=== PATIENT | male | born 1995 | race Caucasian/White ===

== ENCOUNTER 2017-11-08 13:15 | Emergency (ER) | payer OTHER, SELFPAY ==
[2017-11-08 13:19] VITALS: BP 132/72; PULSE 60; RESP 14; TEMP 36.6; O2SAT 100; BMI 22.4
--- NOTE | 2017-11-08 14:22 | ED.BURNSMOKE ---
HPI - Burn/Smoke Inhalation General Chief complaint: Burn/Smoke Inhalation Stated complaint: left hand burn Time Seen by Provider: 11/08/17 13:30 Source: patient Mode of arrival: ambulatory Limitations: no limitations History of Present Illness HPI Narrative: Patient presents with to the ED with his and children and the complaint of burn to L hand after he grabbed a hot exhaust pipe of a lawnmower while at work. His tetanus is current. He immediately put his hand on ice. He has osborne only on the palmar surface of L hand Complaint: burn Onset (ago): hour(s) Smoke Inhalation: none Place: unknown (WORK) Location - Extremities: Left: hand Severity: mild Associated symptoms: denies other symptoms Related Data Previous Rx's Medication Instructions Recorded hydrocodone-acetaminophen 1 tab PO Q4-6H PRN #14 tab 11/08/17 Allergies Allergy/AdvReac Type Severity Reaction Status Date / Time cephalexin Allergy Intermediate Rash Verified 11/08/17 13:22 Review of Systems Review of Systems All systems reviewed & are unremarkable except as noted in HPI and below Constitutional Denies chills, Denies fever(s), Denies lethargy and Denies weakness Eyes Denies change in vision, Denies eye discharge, Denies irritation and Denies loss of vision ENT Ears, Nose, Mouth, and Throat: Denies change in voice, Denies neck pain and Denies sore throat Cardiovascular Denies chest pain, Denies irregular heart rhythm, Denies lightheadedness, Denies palpitations, Denies dyspnea, Denies dyspnea on exertion and Denies orthopnea Respiratory Denies cough, Denies dyspnea, Denies dyspnea on exertion and Denies wheezing Gastrointestinal Gastrointestinal: Denies abdominal pain, Denies change in bowel habits, Denies diarrhea, Denies nausea and Denies vomiting Genitourinary Denies hematuria, Denies flank pain, Denies urinary incontinence and Denies urinary urgency Musculoskeletal Denies neck pain Integumentary/Breasts Denies pruritus, Denies erythema, Denies rash, Reports skin pain, Reports skin swelling and Denies wounds Neurologic Denies confusion, Denies loss of vision and Denies weakness Psychiatric Denies anxiety, Denies confusion, Denies depression, Denies homicidal ideation and Denies suicidal ideation Endocrine Denies palpitations Hematologic/Lymphatic Denies easy bruising Allergic/Immunologic Denies wheezing [facility] Social History Smoking Status: Current every day smoker Exam Narrative Exam Narrative: 21-year-old male in mild distress, complaining of left hand pain Initial Vital Signs Initial Vital Signs: Vital Signs Temperature 97.8 F 11/08/17 13:19 Pulse Rate 60 11/08/17 13:19 Respiratory Rate 14 11/08/17 13:19 Blood Pressure 132/72 H 11/08/17 13:19 Pulse Oximetry 100 11/08/17 13:19 Const General: cooperative, well developed and in distress Nutritional Appearance: well nourished Orientation: alert, awake, oriented x3 and not confused HENMT Head: normocephalic and atraumatic Ears: external ears normal and TM's normal bilaterally Nose: external nose normal and No nasal discharge Face and sinus: sinuses nontender, face symmetric, no sinus tenderness and No dry mucous membranes Mouth: oral mucosae normal and moist mucous membranes Teeth and gingiva: dentition normal Throat: tonsils normal and uvula midline Eyes General: appearance normal, both eyes and all related structures Eyelids: eyelids normal Conjunctivae: conjunctivae normal Sclera: sclerae normal Pupils: PERRL EOM: EOM intact bilaterally Resp Effort & Inspection: normal respiratory effort, able to speak in complete sentences, no respiratory distress and no use of accessory muscles Auscultation: clear to auscultation bilaterally, no rales, no rhonchi and no wheezes GI Inspection: non-distended Palpation: soft, no hepatosplenomegaly, No guarding, No pulsatile mass and No tender Auscultation: normal bowel sounds Skin Other: There are no blisters that are currently fluid-filled. Furthermore there is no skin appears amenable to debridement. Wounds are in the location noted on the picture below and certainly no involvement of wrist, nor circumferential involvement Hand Left Front: 1. 2. 3. Course Orders Ordered: Discontinued Medications Hydrocodone Bitart/Acetaminophen ([place] 5/325) 2 tab PO NOW ONE Stop: 11/08/17 14:19 Last Admin: 11/08/17 14:28 Dose: 2 tab Consultations Consultation #1: Called to the [facility]. Recommendations are to wash their you to video, osborne 306, performing the stretches at least 1 time per day. They recommend cleaning with soap and water and then reapplying bacitracin once daily. They are comfortable with local follow-up at our wound care clinic and suggest that wound care contact them for further questioning or management Vital Signs - 8 hr 11/08/17 13:19 11/08/17 14:33 Temperature 97.8 F Pulse Rate 60 77 Respiratory Rate 14 18 Blood Pressure 132/72 H Blood Pressure [Right Arm] 126/67 H Pulse Oximetry 100 97 Discharge Plan Departure Patient Disposition: Home Clinical Impression: Superficial partial thickness burn of hand Discharge Date/Time: 11/08/17 15:34 Interventions: ED Discharge Assessment Last Done: 11/08/17 15:34 Instructions: Osborne Activity Restrictions/Additional Instructions: *You have been diagnosed with [ superficial partial-thickness osborne of left hand ] *What to do: *Take medications as directed *Follow up with [facility] wound Care on Monday at 11:15 a.m.. Their contact information is listed below. *Return to ER if you should have any new, worsening or concerning symptoms, such as [ increasing pain, numbness or tingling of her fingers, increases redness or swelling The [facility] and [facility] put together very useful YouTube videos for osborne. Please search for the following video (Osborne 306) to perform stretches that will help decrease scarring and the chance of decreased range of motion. Perform these stretches at least 1 time per day. Additionally he will need to wash your left hand with soap and water at least once daily and then reapply bacitracin and a dressing, at least until he follow up with wound care on Monday. Finally I have included the contact info for the [facility] burn clinic [phone] Prescriptions: New hydrocodone-acetaminophen 5-325 mg tablet 1 tab PO Q4-6H PRN (Reason: pain) Qty: 14 RF: 0 Referrals: Camden Pearson MD [Physician] - Dorie Hernandez [Primary Care Provider] -
[2017-11-08] MEDS: HYDROCODONE/ACET 5/325 TABLET 2 TAB PO (14:28)
--- NOTE | 2017-11-08 14:29 | ED_ITS ---
HPI - Burn/Smoke Inhalation General Chief complaint: Burn/Smoke Inhalation Stated complaint: left hand burn Time Seen by Provider: 11/08/17 13:30 Source: patient Mode of arrival: ambulatory Limitations: no limitations History of Present Illness HPI Narrative: Patient presents with to the ED with his and children and the complaint of burn to L hand after he grabbed a hot exhaust pipe of a lawnmower while at work. His tetanus is current. He immediately put his hand on ice. He has osborne only on the palmar surface of L hand Complaint: burn Onset (ago): hour(s) Smoke Inhalation: none Place: unknown (WORK) Location - Extremities: Left: hand Severity: mild Associated symptoms: denies other symptoms Related Data Previous Rx's Medication Instructions Recorded hydrocodone-acetaminophen 1 tab PO Q4-6H PRN #14 tab 11/08/17 Allergies Allergy/AdvReac Type Severity Reaction Status Date / Time cephalexin Allergy Intermediate Rash Verified 11/08/17 13:22 Review of Systems Review of Systems All systems reviewed & are unremarkable except as noted in HPI and below Constitutional Denies chills, Denies fever(s), Denies lethargy and Denies weakness Eyes Denies change in vision, Denies eye discharge, Denies irritation and Denies loss of vision ENT Ears, Nose, Mouth, and Throat: Denies change in voice, Denies neck pain and Denies sore throat Cardiovascular Denies chest pain, Denies irregular heart rhythm, Denies lightheadedness, Denies palpitations, Denies dyspnea, Denies dyspnea on exertion and Denies orthopnea Respiratory Denies cough, Denies dyspnea, Denies dyspnea on exertion and Denies wheezing Gastrointestinal Gastrointestinal: Denies abdominal pain, Denies change in bowel habits, Denies diarrhea, Denies nausea and Denies vomiting Genitourinary Denies hematuria, Denies flank pain, Denies urinary incontinence and Denies urinary urgency Musculoskeletal Denies neck pain Integumentary/Breasts Denies pruritus, Denies erythema, Denies rash, Reports skin pain, Reports skin swelling and Denies wounds Neurologic Denies confusion, Denies loss of vision and Denies weakness Psychiatric Denies anxiety, Denies confusion, Denies depression, Denies homicidal ideation and Denies suicidal ideation Endocrine Denies palpitations Hematologic/Lymphatic Denies easy bruising Allergic/Immunologic Denies wheezing [facility] Social History Smoking Status: Current every day smoker Exam Narrative Exam Narrative: 21-year-old male in mild distress, complaining of left hand pain Initial Vital Signs Initial Vital Signs: Vital Signs Temperature 97.8 F 11/08/17 13:19 Pulse Rate 60 11/08/17 13:19 Respiratory Rate 14 11/08/17 13:19 Blood Pressure 132/72 H 11/08/17 13:19 Pulse Oximetry 100 11/08/17 13:19 Const General: cooperative, well developed and in distress Nutritional Appearance: well nourished Orientation: alert, awake, oriented x3 and not confused HENMT Head: normocephalic and atraumatic Ears: external ears normal and TM's normal bilaterally Nose: external nose normal and No nasal discharge Face and sinus: sinuses nontender, face symmetric, no sinus tenderness and No dry mucous membranes Mouth: oral mucosae normal and moist mucous membranes Teeth and gingiva: dentition normal Throat: tonsils normal and uvula midline Eyes General: appearance normal, both eyes and all related structures Eyelids: eyelids normal Conjunctivae: conjunctivae normal Sclera: sclerae normal Pupils: PERRL EOM: EOM intact bilaterally Resp Effort & Inspection: normal respiratory effort, able to speak in complete sentences, no respiratory distress and no use of accessory muscles Auscultation: clear to auscultation bilaterally, no rales, no rhonchi and no wheezes GI Inspection: non-distended Palpation: soft, no hepatosplenomegaly, No guarding, No pulsatile mass and No tender Auscultation: normal bowel sounds Skin Other: There are no blisters that are currently fluid-filled. Furthermore there is no skin appears amenable to debridement. Wounds are in the location noted on the picture below and certainly no involvement of wrist, nor circumferential involvement Hand Left Front: 2 1. 2. 3. Course Orders Ordered: Discontinued Medications Hydrocodone Bitart/Acetaminophen ([place] 5/325) 2 tab PO NOW ONE Stop: 11/08/17 14:19 Last Admin: 11/08/17 14:28 Dose: 2 tab Consultations Consultation #1: Called to the [facility]. Recommendations are to wash their you to video, osborne 306, performing the stretches at least 1 time per day. They recommend cleaning with soap and water and then reapplying bacitracin once daily. They are comfortable with local follow-up at our wound care clinic and suggest that wound care contact them for further questioning or management Vital Signs - 8 hr 11/08/17 13:19 11/08/17 14:33 Temperature 97.8 F Pulse Rate 60 77 Respiratory Rate 14 18 Blood Pressure 132/72 H Blood Pressure [Right Arm] 126/67 H Pulse Oximetry 100 97 Discharge Plan Departure Patient Disposition: Home Clinical Impression: Superficial partial thickness burn of hand Discharge Date/Time: 11/08/17 15:34 Interventions: ED Discharge Assessment Last Done: 11/08/17 15:34 Instructions: Osborne Activity Restrictions/Additional Instructions: *You have been diagnosed with [ superficial partial-thickness osborne of left hand ] *What to do: *Take medications as directed *Follow up with [facility] wound Care on Monday at 11:15 a.m.. Their contact information is listed below. *Return to ER if you should have any new, worsening or concerning symptoms , such as [ increasing pain, numbness or tingling of her fingers, increases redness or swelling The [facility] and [facility] put together very useful YouTube videos for osborne. Please search for the following video (Osborne 306) to perform stretches that will help decrease scarring and the chance of decreased range of motion. Perform these stretches at least 1 time per day. Additionally he will need to wash your left hand with soap and water at least once daily and then reapply bacitracin and a dressing, at least until he follow up with wound care on Monday. Finally I have included the contact info for the [facility] burn clinic [phone] Prescriptions: New hydrocodone-acetaminophen 5-325 mg tablet 1 tab PO Q4-6H PRN (Reason: pain) Qty: 14 RF: 0 Referrals: Camden Pearson MD [Physician] - Dorie Hernandez [Primary Care Provider] -
[2017-11-08 14:33] VITALS: BP 126/67; PULSE 77; RESP 18; O2SAT 97
--- NOTE | 2017-11-08 15:34 | PC.NURSE ---
1535 hand cleaned, neosporin and bulky dressing applied
== END 2017-11-08 15:34 | disposition home or self-care (01) ==
PROVIDERS: Emergency Provider Emergency Medicine; Family Provider Nurse Practitioner Family; PCP Nurse Practitioner Family
DX: T23.052A Burn of unspecified degree of left palm, initial encounter (principal); X17.XXXA Contact with hot engines, machinery and tools, initial encounter; Y99.0 Civilian activity done for income or pay
CPT/HCPCS: 99282; 99283

== ENCOUNTER → 2017-11-10 08:39 | Outpatient (CLI) | payer OTHER, SELFPAY ==
--- NOTE | 2017-11-10 | OV.WND_ITS ---
Progress Note Details Patient Name: Melvin Vargas Patient Number: [id number] PatientPatientDate: 11/10/2017 Clinician: Dona Wheatley Clinician Cosigner: Vandana Torres Physician / Termite Renewal Inspector: Camden Pearson SUBJECTIVE Chief Complaint This information was obtained from the patient Burn to left hand Allergies Cefzil (Severity: Severe, Reaction: diarrhea, swelling, rash) HPI This information was obtained from the patient 11/10/17. Seen by Dr. Pearson. 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 He was starting a lawnmower and touched the exhaust by accident. He reports minimal pain and now drainage and continues to work with diminished duties. 03/25/15 The patient reports no increase in wound pain or drainage. 03/18/14 The patient reports no increase in wound pain or drainage. Also he reports no systemic symptoms including fever or chills. 03/12/14 The patient reports no increase in wound pain or drainage. Also he reports no systemic symptoms including fever or chills. 03/07/14 The patient is new to our clinic and is following up after experiencing a traumatic laceration to his left hand in a fish grinding machine while at work on . He was seen in our ER where the wound was cleaned, sutured, and he was started on oral doxycycline which he started taking last evening. He's had two doses so far. He states his pain is not well managed by vicodin 2 tabs q4h but does not report fever or chills. According to Dr. Contreras in the ER there was exposed tendon however it did not appear to be damaged and was functional. Family History This information was obtained from the patient Cancer - Maternal Grandparents, Hypertension - Paternal Grandparents, Lung Disease - Maternal Grandparents, Mental Illness - Mother, Father Social History This information was obtained from the patient Current every day smoker - 1/2 pack qd, Alcohol Use, Caffeine Use - 3 pots of coffee, 2-3 sodas, 2 energy drinks, Children - 3 , Lives in - Private home, Tobacco Use ( deprecated) - cigarrettes/ vape Past Medical History This information was obtained from the patient Patient has a medical history of: Hand laceration - 03/05/2014 (left) Surgical History This information was obtained from the patient Patient has a surgical history of: Left arm fracture (2007) Complaints and Symptoms This information was obtained from the patient Patient complains of: General Notes: I have reviewed and concur with the Review of Systems and Past Family Social History documents completed by the clinician, I have reviewed and concur with the Wound Assessment document completed by the clinician Prior Wound History: Bleeding, Erythema, Pain Patient denies complaints or symptoms related to: Constitutional Symptoms (General Health): Chills, Fever Gastrointestinal (GI): Nausea / Vomiting / Diarrhea (N/V/D) Hematologic/Lymphatic: Bleeding / Clotting Disorders, Bleeding Tendency Integumentary (Hair/Skin/Nails): Open Sore Neurological: Loss of Protective Sensation Prior Wound History: Drainage, Malodor Respiratory: Cough, Oxygen Use, Shortness of Breath General Notes: up to date Medications hydrocodone bitartrate ER 10 mg capsule, oral only, extended rel 12 hr oral capsule, oral only, ER 12hr oral every 4-6 hours as needed OBJECTIVE Constitutional Vital signs reviewed and noted. Well developed. Alert. Clean appearing.. Height/ Length: 74 in (187.96 cm), Weight: 164 lbs (74.55 kgs), BMI: 21.1, Temperature: 97.8 ?F ( 36.56 ?C), Pulse: 83 bpm, Respiratory Rate: 18 breaths/min, Blood Pressure: 112/61 mmHg, Pulse Oximetry: 94 %. Ears, Nose, Mouth, and Throat: No clinically significant hearing loss on informal examination. Respiratory: No respiratory distress. Even respirations and without use of accessory muscles.. Gastrointestinal (GI): Non-obese. Nondistended.. Integumentary (Hair, Skin) No periwound erythema, warmth, or significant drainage. No periwound rashes appreciated or noted otherwise.. Refer to appropriate clinician wound documentation for this visit; left hand palmar osborne covered with intact blisters, none crossing joints and no signs of infection. Wound #2 Left Hand is an acute Partial Thickness Burn, thermal (1st degree) and has received a status of Not Healed. Initial wound encounter measurements are 0cm length x 0cm width with no measurable depth, with an area of 0 sq cm . No tunneling has been noted. No sinus tract has been noted. No undermining has been noted. There was no drainage noted. The patient reports a wound pain of level 0/10. The wound margin is attached. Wound bed has No epithelialization, No eschar, No slough, No granulation. The periwound skin texture is normal. The periwound skin moisture is normal. The periwound skin color is normal. The temperature of the periwound skin is WNL. Periwound skin does not exhibit signs or symptoms of infection. Local Pulse is Palpable. Neurological: Cranial nerves grossly intact with symmetric function normal by informal observation.. ASSESSMENT Active Problems ICD-10 (Encounter Diagnosis) T23.002A - Burn of unspecified degree of left hand, unspecified site, initial encounter PLAN Wound Orders: Wound #2 Left Hand Cleanser Cleanse Wound: - Normal saline in clinic. May use distilled water at home if blister opens. May Shower. - If blister opens please avoid getting tap water in wound or on dressing. Dressings Primary dressing: - Foam and gauze. Change Dressing: - Every other day Additional Orders: Follow-Up Appointments Return Appointment: - - One week Other information: If you develop fever, chills, increased pain, drainage, redness or swelling please call our office. If after hours, respond to the ER. Should you experience any significant changes in your wound(s) or have any questions regarding your home care instructions please contact the wound center @ [phone]. If after hours, contact your primary care physician or go to the hospital emergency room. Scribing Attestation I attest, as the nurse, that I scribed these orders for the physician. I've reviewed the clinician's documentation and agree with the evaluation and plan as written. Also, I've decided to leave the blistered skin intact as there's no signs of infection today. He's to keep the burn sites clean and do his best to prevent contamination while working. We'll plan on removing the denuded skin at his next visit. Electronic Signature(s) Signed By: Date: Camden Pearson MD 11/10/2017 13:36:07 Entered By: Camden Pearson on 11/10/2017 10:14:52 Addendum at 01/02/2018 07:57:35 Burn is second degree. Addendum Signed By: Camden Pearson on 01/02/2018 07:57:35
== END ==
PROVIDERS: Family Provider Nurse Practitioner Family; PCP Nurse Practitioner Family; Referring Provider Emergency Medicine; Visit Provider Internal Medicine
DX: T23.202A Burn of second degree of left hand, unspecified site, initial encounter (principal); W28.XXXA Contact with powered lawn mower, initial encounter
CPT/HCPCS: 99213

== ENCOUNTER → 2017-11-16 11:19 | Outpatient (CLI) | payer OTHER, SELFPAY | PROVIDERS: Family Provider Nurse Practitioner Family; PCP Nurse Practitioner Family; Visit Provider Internal Medicine | DX: Z48.817 Encounter for surgical aftercare following surgery on the skin and subcutaneous tissue (principal) | CPT/HCPCS: 99212 ==

== ENCOUNTER 2018-01-09 14:15 | Emergency (ER) | payer OTHER, MEDICAID, SELFPAY ==
[2018-01-09 14:18] VITALS: BP 128/74; PULSE 111; RESP 20; TEMP 37.2; O2SAT 97
[2018-01-09 14:43] LABS: Add Manual Diff / Slide Review NO; Basophils Percent Auto 0.4 % (0-2); Eosinophils Percent Auto 0.4 % (2-4); Hematocrit 45.2 % (41-53); Hemoglobin 15.4 g/dL (13.5-17.5); Lymphocytes Percent Auto 39.3 % (25-40); Mean Corpuscular HGB Conc 34.1 % (30-36); Mean Corpuscular Hemoglobin 31.1 PG (26-34); Mean Corpuscular Volume 91.3 fL (80-100); Monocytes Percent Auto 8.6 % (3-14); Neutrophils Absolute Auto 3700 /uL (3000-5900); Neutrophils Percent Auto 51.3 % (50-75); Platelet Count 213 X10^3/uL (150-400); Red Blood Cell Count 4.95 X10^6/uL (4.5-5.9); White Blood Cell Count 7.2 X10^3/uL (4.5-11.0)
[2018-01-09] MEDS: SODIUM CHLORIDE 0.9% 1,000 ML 1000 ML IV (14:58)
[2018-01-09] MEDS: ONDANSETRON 4 MG/2 ML INJ IV (14:58)
--- NOTE | 2018-01-09 15:00 | ED.ALCOHOL ---
HPI - Alcohol <QUENTIN Kim-BC - Last Filed: 01/09/18 17:30> General Chief Complaint: Toxicology Problem Stated Complaint: wants ETOH detox Time Seen by Provider: 01/09/18 14:38 Source: patient Mode of arrival: ambulatory Limitations: no limitations History of Present Illness HPI narrative: Patient presents requesting help to detox from alcohol. He states usually drinks about 10 tall boy 10% beers a day. He has been attempting to quit for the past week, but complains of detox symptoms including nausea, vomiting shaking and generalized aches and pains. He is seeing [facility] and [facility] And he comes here today requesting for medication to help with his detox symptoms. He does not want to go inpatient detox. He complains of nausea and vomiting. He states his last alcohol was approximately 11:00 a.m., when he had a tall boy and he states this was not his first beer today. patient denies thoughts of hurting himself. States he wants to get clean as his job is at risk and he has driven drunk a few times. Related Data Previous Rx's Medication Instructions Recorded hydrocodone-acetaminophen 1 tab PO Q4-6H PRN #14 tab 11/08/17 chlordiazepoxide HCl See Label Instructions .ROUTE 01/09/18 .COMPLEX #32 cap ondansetron 4 mg PO TID-QID PRN #14 tab 01/09/18 Allergies Allergy/AdvReac Type Severity Reaction Status Date / Time cephalexin Allergy Intermediate Rash Verified 11/08/17 13:22 Review of Systems <HEMA Kim - Last Filed: 01/09/18 17:30> Review of Systems GENERAL: Denies chills, fatigue, malaise, fever, sweats. HEENT: Denies sinus pain, ear pain, sore throat, difficulty swallowing, dizziness. RESPIRATORY: Denies dyspnea, cough, wheezing, hemoptysis, sputum. CARDIOVASCULAR: Denies chest pain, palpitations, orthopnea, edema, GASTROINTESTINAL: See HPI : Denies dysuria, frequency, incontinence, hematuria, urinary retention. MUSCULOSKELETAL: denies weakness, joint pain, or bony pain SKIN: Denies rash, skin lesions, or other NEUROLOGIC: Denies weakness, headache, numbness, change in speech, confusion, seizures, incoordination. PSYCHIATRIC: see HPI 12 point review of systems is negative except for those stated above Exam <DESMOND Kim - Last Filed: 01/09/18 17:30> Narrative Exam Narrative: GENERAL: This is a well-nourished, well-developed patient, In no acute distress HEAD: Atraumatic. Normocephalic. No temporal or scalp tenderness. EYES: Pupils equal round and reactive. Extraocular motions intact. No scleral icterus. No injection or drainage. no nystagmus noted ENT: Nose without bleeding, purulent drainage or septal hematoma. Throat without erythema, tonsillar hypertrophy or exudate. Uvula midline. Airway patent. NECK: Trachea midline. No JVD or lymphadenopathy. Supple, nontender, no meningeal signs. CARDIOVASCULAR: Regular rate and rhythm without murmurs, gallops, or rubs. RESPIRATORY: Clear to auscultation. Breath sounds equal bilaterally. No wheezes, rales, or rhonchi. GASTROINTESTINAL: Abdomen soft, non-tender, nondistended. No hepato-splenomegaly, or palpable masses. No guarding. EXTREMITIES: No clubbing, cyanosis, or edema. No joint tenderness, effusion, or edema noted. BACK: Nontender without deformity or crepitance. No flank tenderness. NEURO: AOx3. no tremor noted. SKIN: No rash or erythema. Psych: patient denies suicidal ideations, suicidal thoughts, homicidal ideations, homicidal thoughts. Patient has no thoughts of self-harm. Initial Vital Signs Initial Vital Signs: Vital Signs Temperature 98.9 F 01/09/18 14:18 Pulse Rate 111 H 01/09/18 14:18 Respiratory Rate 20 01/09/18 14:18 Blood Pressure 128/74 01/09/18 14:18 Pulse Oximetry 97 01/09/18 14:18 <Bienvenido Lacy DO - Last Filed: 01/09/18 17:41> Initial Vital Signs Initial Vital Signs: Vital Signs Temperature 98.9 F 01/09/18 14:18 Pulse Rate 111 H 01/09/18 14:18 Respiratory Rate 20 01/09/18 14:18 Blood Pressure 128/74 01/09/18 14:18 Pulse Oximetry 97 01/09/18 14:18 Course <DESMOND Kim - Last Filed: 01/09/18 17:30> Orders Ordered: ED Orders 01/09/18 14:30 Complete Blood Count AUTO DIFF Stat Comprehensive Metabolic Panel Stat Ethanol (ETOH) Stat Discontinued Medications Sodium Chloride (Normal Saline 0.9%) 1,000 mls @ 1,000 mls/hr IV BOLUS ONE Stop: 01/09/18 15:52 Last Admin: 01/09/18 14:58 Dose: 1,000 mls/hr Ondansetron HCl (Zofran) 4 mg IV NOW ONE Stop: 01/09/18 14:54 Last Admin: 01/09/18 14:58 Dose: 4 mg Reevaluation(s) Reevaluation #1: patient in bed eyes closed respirations even. No apparent distress. Time: 15:15 Reevaluation #2: Patient bed eyes closed respiration even no apparent distress Time: 15:45 Reevaluation #3: Discussed at length with patient process of detox. Patient again states he does not want inpatient detox. Discussed not be able to drink alcohol or take opiates when using Librium. Patient has no questions or concerns and states planning on follow-up with [facility]. Time: 16:30 Vital Signs - 8 hr 01/09/18 14:18 01/09/18 15:49 01/09/18 17:03 Temperature 98.9 F Pulse Rate 111 H 92 H 91 H Respiratory Rate 20 18 16 Blood Pressure 128/74 Blood Pressure [Left Arm] 108/50 L 108/53 L Pulse Oximetry 97 97 97 <Bienvenido Lacy, DO - Last Filed: 01/09/18 17:41> Orders Ordered: ED Orders 01/09/18 14:30 Complete Blood Count AUTO DIFF Stat Comprehensive Metabolic Panel Stat Ethanol (ETOH) Stat Discontinued Medications Sodium Chloride (Normal Saline 0.9%) 1,000 mls @ 1,000 mls/hr IV BOLUS ONE Stop: 01/09/18 15:52 Last Admin: 01/09/18 14:58 Dose: 1,000 mls/hr Ondansetron HCl (Zofran) 4 mg IV NOW ONE Stop: 01/09/18 14:54 Last Admin: 01/09/18 14:58 Dose: 4 mg Vital Signs - 8 hr 01/09/18 14:18 01/09/18 15:49 01/09/18 17:03 Temperature 98.9 F Pulse Rate 111 H 92 H 91 H Respiratory Rate 20 18 16 Blood Pressure 128/74 Blood Pressure [Left Arm] 108/50 L 108/53 L Pulse Oximetry 97 97 97 MDM - Alcohol <Jammie RomeroKELSEAP- - Last Filed: 01/09/18 17:30> Lab Data Result diagrams: 01/09/18 14:30 01/09/18 14:30 Labs: Lab Results 01/09/18 01/09/18 Range/Units 14:30 14:30 WBC 7.2 (4.5-11.0) X10^3/uL RBC 4.95 (4.5-5.9) X10^6/uL Hgb 15.4 (13.5-17.5) g/dL Hct 45.2 (41-53) % MCV 91.3 (80-100) fL MCH 31.1 (26-34) PG MCHC 34.1 (30-36) % RDW 13.0 (11.6-14.8) % Plt Count 213 (150-400) X10^3/uL Neut % (Auto) 51.3 (50-75) % Lymph % (Auto) 39.3 (25-40) % Howard % (Auto) 8.6 (3-14) % Eos % (Auto) 0.4 L (2-4) % Baso % (Auto) 0.4 (0-2) % Neut # (Auto) 3700 (7887-7247) /uL Sodium 145 (137-145) mmol/L Potassium 4.1 (3.4-5.1) mmol/L Chloride 104 (98-107) mmol/L Carbon Dioxide 29 (22-32) mmol/L BUN 12 (9-20) mg/dL Creatinine 0.60 L (0.66-1.25) mg/dL Estimated GFR > 60.0 (>60) mL/min BUN/Creatinine Ratio 20.0 (6-22) Glucose 130 H (70-100) mg/dL Calcium 9.4 (8.4-10.2) mg/dL Total Bilirubin 0.6 (0.2-1.3) mg/dL AST 36 (17-59) IU/L ALT 41 (21-72) IU/L Alkaline Phosphatase 67 (38-126) U/L Total Protein 7.8 (6.3-8.2) g/dL Albumin 5.0 (3.5-5.0) g/dL Globulin 2.8 (1.7-4.1) g/dL Albumin/Globulin Ratio 1.8 (1.0-2.8) Ethyl Alcohol 121 mg/dL [facility] Narrative Medical decision making narrative: Patient presents requesting medications to help with alcohol detox. He is hemodynamically stable, has a benign neurological exam, and does not want to do inpatient detox. His basic labs came back within normal limits. I discussed at length use of Librium as well as not combining with opiates or alcohol. Patient has no questions or concerns upon discharge. I discussed at length monitoring as well as follow up with primary care in [facility]. No questions or concerns upon discharge. <Bienvenido Lacy, - Last Filed: 01/09/18 17:41> Lab Data Labs: Lab Results 01/09/18 01/09/18 Range/Units 14:30 14:30 WBC 7.2 (4.5-11.0) X10^3/uL RBC 4.95 (4.5-5.9) X10^6/uL Hgb 15.4 (13.5-17.5) g/dL Hct 45.2 (41-53) % MCV 91.3 (80-100) fL MCH 31.1 (26-34) PG MCHC 34.1 (30-36) % RDW 13.0 (11.6-14.8) % Plt Count 213 (150-400) X10^3/uL Neut % (Auto) 51.3 (50-75) % Lymph % (Auto) 39.3 (25-40) % Howard % (Auto) 8.6 (3-14) % Eos % (Auto) 0.4 L (2-4) % Baso % (Auto) 0.4 (0-2) % Neut # (Auto) 3700 (7947-3529) /uL Sodium 145 (137-145) mmol/L Potassium 4.1 (3.4-5.1) mmol/L Chloride 104 (98-107) mmol/L Carbon Dioxide 29 (22-32) mmol/L BUN 12 (9-20) mg/dL Creatinine 0.60 L (0.66-1.25) mg/dL Estimated GFR > 60.0 (>60) mL/min BUN/Creatinine Ratio 20.0 (6-22) Glucose 130 H (70-100) mg/dL Calcium 9.4 (8.4-10.2) mg/dL Total Bilirubin 0.6 (0.2-1.3) mg/dL AST 36 (17-59) IU/L ALT 41 (21-72) IU/L Alkaline Phosphatase 67 (38-126) U/L Total Protein 7.8 (6.3-8.2) g/dL Albumin 5.0 (3.5-5.0) g/dL Globulin 2.8 (1.7-4.1) g/dL Albumin/Globulin Ratio 1.8 (1.0-2.8) Ethyl Alcohol 121 mg/dL Discharge Plan Departure Patient Disposition: Home Clinical Impression: Alcohol abuse with intoxication, Alcohol cessation counseling Discharge Date/Time: 01/09/18 17:23 Interventions: ED Discharge Assessment Last Done: 01/09/18 17:21 Instructions: DI for Delirium Tremens, DI for Alcohol Abuse, DI for Drug or Alcohol Withdrawal, DI for Alcohol Poisoning Activity Restrictions/Additional Instructions: I am giving you Librium which is a prescription that can help with alcohol detoxification. Please do not combine this with alcohol and do not combine this with opiates. please continued treatment through [facility]. I have also given you a prescription for Zofran for nausea. Please follow-up with primary care provider. I think you are doing the right thing trying to stop drinking alcohol. please keep up the hard work. Prescriptions: New chlordiazepoxide HCl 25 mg capsule See Label Instructions .ROUTE .COMPLEX Qty: 32 RF: 0 ondansetron 4 mg tablet,disintegrating 4 mg PO TID-QID PRN (Reason: nausea and vomiting) Qty: 14 RF: 0 No Action hydrocodone-acetaminophen 5-325 mg tablet 1 tab PO Q4-6H PRN (Reason: pain) Qty: 14 RF: 0 Referrals: Dorie Hernandez [Primary Care Provider] - <Bienvenido Lacy DO - Last Filed: 01/09/18 17:41> Cosign ED Attending Jennifer Attestation: I was available for consultation during this patient's emergency department encounter
[2018-01-09 15:04] LABS: Alanine Aminotransferase 41 IU/L (21-72); Albumin Globulin Ratio 1.8 (1.0-2.8); Alkaline Phosphatase 67 U/L (38-126); Aspartate Aminotransferase 36 IU/L (17-59); Bilirubin Total 0.6 mg/dL (0.2-1.3); Blood Urea Nitrogen 12 mg/dL (9-20); Calcium 9.4 mg/dL (8.4-10.2); Carbon Dioxide 29 mmol/L (22-32); Chloride 104 mmol/L (98-107); Estimated Glomerular Filt Rate > 60.0 mL/min (>60); Ethanol (ETOH) 121 mg/dL; Globulin 2.8 g/dL (1.7-4.1); Glucose 130 mg/dL (70-100); HEMOLYSIS < 15 (0-50); Potassium 4.1 mmol/L (3.4-5.1); Sodium 145 mmol/L (137-145); Total Protein 7.8 g/dL (6.3-8.2)
[2018-01-09 15:49] VITALS: BP 108/50; PULSE 92; RESP 18; O2SAT 97
[2018-01-09 17:03] VITALS: BP 108/53; PULSE 91; RESP 16; O2SAT 97
== END 2018-01-09 17:23 | disposition home or self-care (01) ==
PROVIDERS: Emergency Provider Nurse Practitioner Family; Family Provider Nurse Practitioner Family; PCP Nurse Practitioner Family
DX: F10.129 Alcohol abuse with intoxication, unspecified (principal)
CPT/HCPCS: 36591; 80053; 80320; 85025; 96361; 96374; 99282; 99284; J2405

== ENCOUNTER 2018-02-01 18:52 | Emergency (ER) | payer OTHER, MEDICAID, SELFPAY ==
[2018-02-01 19:03] VITALS: BP 114/68; PULSE 93; RESP 20; TEMP 37.2; O2SAT 96; BMI 22.4
--- NOTE | 2018-02-01 19:57 | ED.EYEPROB ---
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 He thoroughly rinsed the eye the for about half an hour, but has had irritation, discolored drainage, and feels like his vision is more blurry in that eye. He is concerned about pink eye. He denies any other complaints, no recent upper respiratory symptoms or other exposures. Related Data Previous Rx's Medication Instructions Recorded hydrocodone-acetaminophen 1 tab PO Q4-6H PRN #14 tab 11/08/17 chlordiazepoxide HCl See Label Instructions .ROUTE 01/09/18 .COMPLEX #32 cap ondansetron 4 mg PO TID-QID PRN #14 tab 01/09/18 ciprofloxacin HCl 2 drop EYE-RIGHT Q4HRWA 5 Days #5 02/01/18 ml Allergies Allergy/AdvReac Type Severity Reaction Status Date / Time cephalexin Allergy Intermediate Rash Verified 11/08/17 13:22 Review of Systems <Danae Epperson PA-C - Last Filed: 02/01/18 22:14> Review of Systems All systems reviewed & are unremarkable except as noted in HPI and below PFSH <Danae Epperson PA-C - Last Filed: 02/01/18 22:14> Comment: quit ETOH, + THC Exam <Danae Epperson PA-C - Last Filed: 02/01/18 22:14> Narrative Exam Narrative: GENERAL: Well-appearing patient is sitting comfortably HEENT: PERRL, EOMI, right conjunctival erythema and moderate scleral injection. With fluorescein stain there are some small abrasions visible in the superior medial and superior lateral cornea. No foreign body visible. Visual acuity 20/70 OD, 20/50 OU, 20/40 OS MUSCULOSKELETAL: Left forearm deformity and multiple surgical scars noted Initial Vital Signs Initial Vital Signs: Vital Signs Temperature 99 F 02/01/18 19:03 Pulse Rate 93 H 02/01/18 19:03 Respiratory Rate 20 02/01/18 19:03 Blood Pressure 114/68 02/01/18 19:03 Pulse Oximetry 96 02/01/18 19:03 <Jammie López DO - Last Filed: 02/01/18 23:37> Initial Vital Signs Initial Vital Signs: Vital Signs Temperature 99 F 02/01/18 19:03 Pulse Rate 93 H 02/01/18 19:03 Respiratory Rate 20 02/01/18 19:03 Blood Pressure 114/68 02/01/18 19:03 Pulse Oximetry 96 02/01/18 19:03 Course <Danae Epperson PA-C - Last Filed: 02/01/18 22:14> Vital Signs - 8 hr 02/01/18 19:03 Temperature 99 F Pulse Rate 93 H Respiratory Rate 20 Blood Pressure 114/68 Pulse Oximetry 96 <Jammie López DO - Last Filed: 02/01/18 23:37> Vital Signs - 8 hr 02/01/18 19:03 Temperature 99 F Pulse Rate 93 H Respiratory Rate 20 Blood Pressure 114/68 Pulse Oximetry 96 Discharge Plan Departure Patient Disposition: Home Clinical Impression: Conjunctivitis Discharge Date/Time: 02/01/18 20:49 Interventions: ED Discharge Assessment Last Done: 02/01/18 20:47 Instructions: DI for Corneal Abrasion, DI for Conjunctivitis Activity Restrictions/Additional Instructions: You have some small abrasions on your cornea as well as probable pinkeye given the dirty material that you came into contact with today. I have prescribed antibiotic drops. Please start these as soon as you get home, every couple of hours while your work tonight, then every 4 hr. Use hot packs in between to help with comfort and drainage. You can also use an [id number] I moisturizer, I would suggest a gel to help with comfort. If your eye is worse tomorrow in terms of pain or vision, you need to see Ophthalmology. I have included the number for you. Let them know that you were seen in the emergency room and need to be seen for follow-up Prescriptions: New ciprofloxacin HCl 0.3 % drops 2 drop EYE-RIGHT Q4HRWA 5 Days Qty: 5 RF: 0 No Action chlordiazepoxide HCl 25 mg capsule See Label Instructions .ROUTE .COMPLEX Qty: 32 RF: 0 ondansetron 4 mg tablet,disintegrating 4 mg PO TID-QID PRN (Reason: nausea and vomiting) Qty: 14 RF: 0 hydrocodone-acetaminophen 5-325 mg tablet 1 tab PO Q4-6H PRN (Reason: pain) Qty: 14 RF: 0 Referrals: Derek Nam MD [Physician] - <Jammie López DO - Last Filed: 02/01/18 23:37> Cosign ED Attending Cosignature Attestation: I was immediately available in the department for consultation. This documentation has been reviewed and I agree with assessment and plan. Supervised by Jammie López DO
== END 2018-02-01 20:49 | disposition home or self-care (01) ==
PROVIDERS: Emergency Provider Internal Medicine; Family Provider Nurse Practitioner Family; PCP Nurse Practitioner Family
DX: H10.31 Unspecified acute conjunctivitis, right eye (principal)
CPT/HCPCS: 99283

== ENCOUNTER 2018-05-29 10:48 | Emergency (ER) | payer SELFPAY ==
[2018-05-29 11:20] VITALS: BP 111/64; PULSE 101; RESP 16; TEMP 37.1; O2SAT 97; BMI 21.2
--- NOTE | 2018-05-29 11:35 | DI.RAD.S_ITS ---
PROCEDURE: XR FOREARM RT 2V INDICATIONS: Dog bite TECHNIQUE: 2 views of the forearm were acquired. COMPARISON: None. FINDINGS: Bones: ORIF hardware within the proximal radius and ulna. Alignment is anatomic. No acute fractures or dislocations. No suspicious bony lesions. Soft tissues: No suspicious soft tissue calcifications or masses. IMPRESSION: Postsurgical sequelae. No acute fracture. No osseous lesion. If symptoms and/or clinical suspicion for pathology persist, further assessment with repeat, or advanced imaging (e.g., CT, MRI, or bone scan) may be helpful for further assessment. Dictated by: Janett Chen M.D. on 05/29/2018 at 11:54 Approved by: Janett Chen M.D. on 05/29/2018 at 11:55
[2018-05-29] MEDS: TET,DIPH,PERTUSS(ACELL),VAC/PF 0.5 ML SYRINGE IM (11:56)
--- NOTE | 2018-05-29 12:15 | ED.ANIMALBIT ---
HPI - Animal Bite <CANDELARIA Nguyen - Last Filed: 05/29/18 21:59> General Chief Complaint: Animal Bite Stated Complaint: BIT BY DOG YESTERDAY Time Seen by Provider: 05/29/18 12:04 Source: patient Mode of arrival: ambulatory Limitations: no limitations History of Present Illness HPI narrative: 22-year-old healthy male that is an everyday smoker here for complaint of dog bite to his left forearm area. He states that he was at a job site at someone's home when their dog bit him. he does not know the immunization status of the dog. he was concerned because he does not believe that his tetanus is up-to-date. And wanted to be checked out today. He denies any drainage from the area. No fevers no chills. Trauma is limited to the left forearm area. He denies any other concerns or complaints at this timefr MD complaint: animal bite Related Data Allergies Allergy/AdvReac Type Severity Reaction Status Date / Time cephalexin Allergy Intermediate Rash Verified 05/29/18 11:20 Review of Systems <CANDELARIA Nguyen - Last Filed: 05/29/18 21:59> Constitutional Denies chills, Denies fever(s), Denies lethargy and Denies weakness Eyes Denies change in vision, Denies eye discharge, Denies irritation and Denies loss of vision ENT Ears, Nose, Mouth, and Throat: Denies change in voice, Denies neck pain and Denies sore throat Cardiovascular Denies chest pain, Denies irregular heart rhythm, Denies lightheadedness, Denies palpitations, Denies dyspnea, Denies dyspnea on exertion and Denies orthopnea Respiratory Denies cough, Denies dyspnea, Denies dyspnea on exertion and Denies wheezing Gastrointestinal Gastrointestinal: Denies abdominal pain, Denies change in bowel habits, Denies diarrhea, Denies nausea and Denies vomiting Genitourinary Denies hematuria, Denies flank pain, Denies urinary incontinence and Denies urinary urgency Musculoskeletal Denies neck pain Comments: Left forearm dog bite Integumentary/Breasts Denies pruritus, Denies erythema, Denies rash and Denies wounds Neurologic Denies confusion, Denies loss of vision and Denies weakness Psychiatric Denies anxiety, Denies confusion, Denies depression, Denies homicidal ideation and Denies suicidal ideation Endocrine Denies palpitations Hematologic/Lymphatic Denies easy bruising Allergic/Immunologic Denies wheezing PFSH <CANDELARIA Nguyen - Last Filed: 05/29/18 21:59> Medical History Chronic back pain (Chronic) Surgical History Fracture of left upper limb (Resolved) Social History Smoking Status: Current every day smoker Social History Smoking Status: Current every day smoker Exam <CANDELARIA Nguyen - Last Filed: 05/29/18 21:59> Initial Vital Signs Initial Vital Signs: Vital Signs Temperature 98.8 F 05/29/18 11:20 Pulse Rate 101 H 05/29/18 11:20 Respiratory Rate 16 05/29/18 11:20 Blood Pressure 111/64 05/29/18 11:20 Pulse Oximetry 97 05/29/18 11:20 Const General: cooperative and well developed Nutritional Appearance: well nourished Orientation: alert, awake, oriented x3 and not confused HENAK Mouth: oral mucosae normal and moist mucous membranes Eyes Conjunctivae: conjunctivae normal Sclera: sclerae normal Pupils: PERRL EOM: EOM intact bilaterally Resp Effort & Inspection: normal respiratory effort, able to speak in complete sentences, no respiratory distress and no use of accessory muscles Auscultation: clear to auscultation bilaterally, no rales, no rhonchi and no wheezes Cardio Rate: regular rate Rhythm: regular rhythm Heart Sounds: no click, no gallops, no murmurs and no rubs Skin General: no rashes or lesions noted, No jaundice and No petechiae Neuro General: alert, oriented x3, gait normal and no focal motor deficits Speech: speech normal Extrem Other: 3 superficial abrasion/small puncture wounds to the ulnar aspect of the distal left forearm. He do not appreciate signs of infection at this time. No deformities. Distal sensation is intact. Distal range of motion is intact. Distal pulses are intact. <Bienvenido Lacy DO - Last Filed: 05/30/18 07:13> Initial Vital Signs Initial Vital Signs: Vital Signs Temperature 98.8 F 05/29/18 11:20 Pulse Rate 101 H 05/29/18 11:20 Respiratory Rate 16 05/29/18 11:20 Blood Pressure 111/64 05/29/18 11:20 Pulse Oximetry 97 05/29/18 11:20 Course <CANDELARIA Nguyen - Last Filed: 05/29/18 21:59> Orders Ordered: Discontinued Medications Diphtheria/Tetanus/Acell Pertussis (Adacel) 0.5 ml IM .ONCE ONE Stop: 05/29/18 11:55 Last Admin: 05/29/18 11:56 Dose: 0.5 ml Vital Signs - 8 hr 05/29/18 11:20 Temperature 98.8 F Pulse Rate 101 H Respiratory Rate 16 Blood Pressure 111/64 Pulse Oximetry 97 <Bienvenido Lacy DO - Last Filed: 05/30/18 07:13> Orders Ordered: Discontinued Medications Diphtheria/Tetanus/Acell Pertussis (Adacel) 0.5 ml IM .ONCE ONE Stop: 05/29/18 11:55 Last Admin: 05/29/18 11:56 Dose: 0.5 ml Vital Signs - 8 hr 05/29/18 11:20 Temperature 98.8 F Pulse Rate 101 H Respiratory Rate 16 Blood Pressure 111/64 Pulse Oximetry 97 MDM - Animal Bite <CANDELARIA Nguyen - Last Filed: 05/29/18 21:59> Imaging Data Left forearm: Radiologist's impression: [place] [address] XRay Report Signed Patient: Melvin Vargas [facility]#: [id number] : 1995Acct:[id number] Age/Sex: 22 / MDate of Service: 05/29/18 Loc: ED Accession Number: [id number] Procedure: XR forearm LT 2V Ordering Provider: Bienvenido Lacy D.O. PROCEDURE: XR FOREARM RT 2V INDICATIONS: Dog bite TECHNIQUE: 2 views of the forearm were acquired. COMPARISON: None. FINDINGS: Bones: ORIF hardware within the proximal radius and ulna. Alignment is anatomic. No acute fractures or dislocations. No suspicious bony lesions. Soft tissues: No suspicious soft tissue calcifications or masses. IMPRESSION: Postsurgical sequelae. No acute fracture. No osseous lesion. If symptoms and/or clinical suspicion for pathology persist, further assessment with repeat, or advanced imaging (e.g., CT, MRI, or bone scan) may be helpful for further assessment. Dictated by: Janett Chen M.D. on 05/29/2018 at 11:54 Approved by: Janett Chen M.D. on 05/29/2018 at 11:55 MDM Narrative Medical decision making narrative: x-ray of the left forearm was obtained was negative for any fractures or foreign bodies. do not appreciate infection at this time. Will hold on antibiotic prophylaxis patient is encouraged to follow up with primary care in the next couple days for re-evaluation. If any worsening symptoms or signs of infection return to the emergency room. Tetanus is updated in the emergency room today. Dress wound daily with bacitracin and a dressing until healed. [id number] ibuprofen as Discharge Plan Departure Patient Disposition: Home Clinical Impression: Dog bite Qualifiers: Encounter type: initial encounter Qualified Code(s): W54.0XXA - Bitten by dog, initial encounter Discharge Date/Time: 05/29/18 12:43 Interventions: ED Discharge Assessment Last Done: 05/29/18 12:42 Instructions: DI for Dog Bite Activity Restrictions/Additional Instructions: X-ray of the left forearm was obtained was negative for any bony involvement or any foreign bodies. Do not appreciate infection at this time. however recommend follow up with primary care in the next couple days for re-evaluation. If any worsening symptoms or signs of infection such as increased redness or swelling return to the emergency room. Tetanus was updated in the emergency room today. Use [id number] ibuprofen as needed for any discomfort. Referrals: Dorie Hernandez [Primary Care Provider] - <Bienvenido Lacy DO - Last Filed: 05/30/18 07:13> Cosign ED Attending Cosismaelature Attestation: I was available for consultation during this patient's emergency department encounter
--- NOTE | 2018-05-29 12:31 | ED_ITS ---
HPI - Animal Bite <CANDELARIA Nguyen - Last Filed: 05/29/18 21:59> General Chief Complaint: Animal Bite Stated Complaint: BIT BY DOG YESTERDAY Time Seen by Provider: 05/29/18 12:04 Source: patient Mode of arrival: ambulatory Limitations: no limitations History of Present Illness HPI narrative: 22-year-old healthy male that is an everyday smoker here for complaint of dog bite to his left forearm area. He states that he was at a job site at someone's home when their dog bit him. he does not know the immunization status of the dog. he was concerned because he does not believe that his tetanus is up-to-date. And wanted to be checked out today. He denies any drainage from the area. No fevers no chills. Trauma is limited to the left forearm area. He denies any other concerns or complaints at this timefr MD complaint: animal bite Related Data Allergies Allergy/AdvReac Type Severity Reaction Status Date / Time cephalexin Allergy Intermediate Rash Verified 05/29/18 11:20 Review of Systems <CANDELARIA Nguyen - Last Filed: 05/29/18 21:59> Constitutional Denies chills, Denies fever(s), Denies lethargy and Denies weakness Eyes Denies change in vision, Denies eye discharge, Denies irritation and Denies loss of vision ENT Ears, Nose, Mouth, and Throat: Denies change in voice, Denies neck pain and Denies sore throat Cardiovascular Denies chest pain, Denies irregular heart rhythm, Denies lightheadedness, Denies palpitations, Denies dyspnea, Denies dyspnea on exertion and Denies orthopnea Respiratory Denies cough, Denies dyspnea, Denies dyspnea on exertion and Denies wheezing Gastrointestinal Gastrointestinal: Denies abdominal pain, Denies change in bowel habits, Denies diarrhea, Denies nausea and Denies vomiting Genitourinary Denies hematuria, Denies flank pain, Denies urinary incontinence and Denies urinary urgency Musculoskeletal Denies neck pain Comments: Left forearm dog bite Integumentary/Breasts Denies pruritus, Denies erythema, Denies rash and Denies wounds Neurologic Denies confusion, Denies loss of vision and Denies weakness Psychiatric Denies anxiety, Denies confusion, Denies depression, Denies homicidal ideation and Denies suicidal ideation Endocrine Denies palpitations Hematologic/Lymphatic Denies easy bruising Allergic/Immunologic Denies wheezing PFSH <CANDELARIA Nguyen - Last Filed: 05/29/18 21:59> Medical History Chronic back pain (Chronic) Surgical History Fracture of left upper limb (Resolved) Social History Smoking Status: Current every day smoker Social History Smoking Status: Current every day smoker Exam <CANDELARIA Nguyen - Last Filed: 05/29/18 21:59> Initial Vital Signs Initial Vital Signs: Vital Signs Temperature 98.8 F 05/29/18 11:20 Pulse Rate 101 H 05/29/18 11:20 Respiratory Rate 16 05/29/18 11:20 Blood Pressure 111/64 05/29/18 11:20 Pulse Oximetry 97 05/29/18 11:20 Const General: cooperative and well developed Nutritional Appearance: well nourished Orientation: alert, awake, oriented x3 and not confused HENND Mouth: oral mucosae normal and moist mucous membranes Eyes Conjunctivae: conjunctivae normal Sclera: sclerae normal Pupils: PERRL EOM: EOM intact bilaterally Resp Effort & Inspection: normal respiratory effort, able to speak in complete sentences, no respiratory distress and no use of accessory muscles Auscultation: clear to auscultation bilaterally, no rales, no rhonchi and no wheezes Cardio Rate: regular rate Rhythm: regular rhythm Heart Sounds: no click, no gallops, no murmurs and no rubs Skin General: no rashes or lesions noted, No jaundice and No petechiae Neuro General: alert, oriented x3, gait normal and no focal motor deficits Speech: speech normal Extrem Other: 3 superficial abrasion/small puncture wounds to the ulnar aspect of the distal left forearm. He do not appreciate signs of infection at this time. No deformities. Distal sensation is intact. Distal range of motion is intact. Distal pulses are intact. <Bienvenido Lacy DO - Last Filed: 05/30/18 07:13> Initial Vital Signs Initial Vital Signs: Vital Signs Temperature 98.8 F 05/29/18 11:20 Pulse Rate 101 H 05/29/18 11:20 Respiratory Rate 16 05/29/18 11:20 Blood Pressure 111/64 05/29/18 11:20 Pulse Oximetry 97 05/29/18 11:20 Course <CANDELARIA Nguyen - Last Filed: 05/29/18 21:59> Orders Ordered: Discontinued Medications Diphtheria/Tetanus/Acell Pertussis (Adacel) 0.5 ml IM .ONCE ONE Stop: 05/29/18 11:55 Last Admin: 05/29/18 11:56 Dose: 0.5 ml Vital Signs - 8 hr 05/29/18 11:20 Temperature 98.8 F Pulse Rate 101 H Respiratory Rate 16 Blood Pressure 111/64 Pulse Oximetry 97 <Bienvenido Lacy DO - Last Filed: 05/30/18 07:13> Orders Ordered: Discontinued Medications Diphtheria/Tetanus/Acell Pertussis (Adacel) 0.5 ml IM .ONCE ONE Stop: 05/29/18 11:55 Last Admin: 05/29/18 11:56 Dose: 0.5 ml Vital Signs - 8 hr 05/29/18 11:20 Temperature 98.8 F Pulse Rate 101 H Respiratory Rate 16 Blood Pressure 111/64 Pulse Oximetry 97 MDM - Animal Bite <CANDELARIA Nguyen - Last Filed: 05/29/18 21:59> Imaging Data Left forearm: Radiologist's impression: [place] [address] XRay Report Signed Patient: Melvin Vargas [facility]#: [id number] : 1995Acct:[id number] Age/Sex: 22 / MDate of Service: 05/29/18 Loc: ED Accession Number: [id number] Procedure: XR forearm LT 2V Ordering Provider: Bienvenido Lacy D.O. PROCEDURE: XR FOREARM RT 2V INDICATIONS: Dog bite TECHNIQUE: 2 views of the forearm were acquired. COMPARISON: None. FINDINGS: Bones: ORIF hardware within the proximal radius and ulna. Alignment is anatomic. No acute fractures or dislocations. No suspicious bony lesions. Soft tissues: No suspicious soft tissue calcifications or masses. IMPRESSION: Postsurgical sequelae. No acute fracture. No osseous lesion. If symptoms and/or clinical suspicion for pathology persist, further assessment with repeat, or advanced imaging (e.g., CT, MRI, or bone scan) may be helpful for further assessment. Dictated by: Janett Chen M.D. on 05/29/2018 at 11:54 Approved by: Janett Chen M.D. on 05/29/2018 at 11:55 MDM Narrative Medical decision making narrative: x-ray of the left forearm was obtained was negative for any fractures or foreign bodies. do not appreciate infection at this time. Will hold on antibiotic prophylaxis patient is encouraged to follow up with primary care in the next couple days for re-evaluation. If any w orsening symptoms or signs of infection return to the emergency room. Tetanus is updated in the emergency room today. Dress wound daily with bacitracin and a dressing until healed. [id number] ibuprofen as Discharge Plan Departure Patient Disposition: Home Clinical Impression: Dog bite Qualifiers: Encounter type: initial encounter Qualified Code(s): W54.0XXA - Bitten by dog, initial encounter Discharge Date/Time: 05/29/18 12:43 Interventions: ED Discharge Assessment Last Done: 05/29/18 12:42 Instructions: DI for Dog Bite Activity Restrictions/Additional Instructions: X-ray of the left forearm was obtained was negative for any bony involvement or any foreign bodies. Do not appreciate infection at this time. however recommend follow up with primary care in the next couple days for re-evaluation. If any worsening symptoms or signs of infection such as increased redness or swelling return to the emergency room. Tetanus was updated in the emergency room today. Use [id number] ibuprofen as needed for any discomfort. Referrals: Dorie Hernandez [Primary Care Provider] - <Bienvenido Lacy DO - Last Filed: 05/30/18 07:13> Cosign ED Attending Cosignature Attestation: I was available for consultation during this patient's emergency department encounter
[2018-05-29 12:41] VITALS: BP 105/54; PULSE 82; RESP 18; O2SAT 95
== END 2018-05-29 12:43 | disposition home or self-care (01) ==
PROVIDERS: Emergency Provider Nurse Practitioner Family; Family Provider Nurse Practitioner Family; PCP Nurse Practitioner Family
DX: S51.852A Open bite of left forearm, initial encounter (principal); W54.0XXA Bitten by dog, initial encounter; Y92.89 Other specified places as the place of occurrence of the external cause; Y99.0 Civilian activity done for income or pay
CPT/HCPCS: 73090; 99282; 99283; 90715

== ENCOUNTER → 2020-06-23 17:40 | Outpatient (CLI) | payer OTHER, SELFPAY ==
--- NOTE | 2020-06-23 17:47 | DI.RAD.S_ITS ---
PROCEDURE: XR FOREARM LT 2V INDICATIONS: pain/injury TECHNIQUE: 2 views of the forearm were acquired. COMPARISON: [facility], CR, XR HAND LT MIN 3V, 06/23/2020, 17:46. [facility], ANT, FOREARM RIGHT, 04/04/2017, 15:22. [facility], CR, XR FOREARM LT 2V, 05/29/2018, 11:34. FINDINGS: Bones: There is a lucency in pisiform, suspicious for nondisplaced fracture. Stable hold surgical hardware in the proximal radial and ulnar shaft. Soft tissues: No suspicious soft tissue calcifications or masses. No radiopaque foreign bodies. IMPRESSION: 1. Suspect nondisplaced pisiform fracture. 2. Postsurgical changes are seen stable. 3. No radiopaque foreign body. Dictated by: Sue Armenta M.D. on 06/23/2020 at 17:07 Approved by: Sue Armenta M.D. on 06/23/2020 at 17:14
--- NOTE | 2020-06-23 17:47 | DI.RAD.S_ITS ---
PROCEDURE: XR HAND LT MIN 3V INDICATIONS: pain/injury TECHNIQUE: 3 views of the hand(s) acquired. COMPARISON: [facility], CR, FOREARM RIGHT, 04/04/2017, 15:22. [facility], CR, XR FOREARM LT 2V, 05/29/2018, 11:34. [facility], CR, XR FOREARM LT 2V, 06/23/2020, 17:46. FINDINGS: Bones: Nondisplaced pisiform fracture is better seen on the left forearm x-ray. No dislocations. Carpal bones are normally aligned. No suspicious bony lesions. Soft tissues: No suspicious soft tissue calcifications. IMPRESSION: Nondisplaced pisiform fracture. Dictated by: Sue Armenta M.D. on 06/23/2020 at 17:14 Approved by: Sue Armenta M.D. on 06/23/2020 at 17:16
== END ==
LOC: DI 17:46
PROVIDERS: Family Provider Nurse Practitioner Family; PCP Nurse Practitioner Family; Referring Provider Physician Assistant; Visit Provider Physician Assistant
DX: S62.165A Nondisplaced fracture of pisiform, left wrist, initial encounter for closed fracture (principal); M79.632 Pain in left forearm; X58.XXXA Exposure to other specified factors, initial encounter
CPT/HCPCS: 73090; 73130

== ENCOUNTER 2021-07-13 10:41 | Emergency (ER) | payer MEDICAID, SELFPAY ==
[2021-07-13 10:48] VITALS: BP 121/46; PULSE 72; RESP 14; TEMP 36.4; O2SAT 95; BMI 21.2
--- NOTE | 2021-07-13 10:52 | DI.RAD.S_ITS ---
PROCEDURE: XR FINGER LT MIN 2V INDICATIONS: cut middle digit with saw TECHNIQUE: AP hand, 2 views of the 3rd finger(s) acquired. COMPARISON: [facility], , FINGER LT, 03/05/2014, 18:20. FINDINGS: Bones: No fractures or dislocations. No suspicious bony lesions. Soft tissues: Soft tissue irregularity, compatible with the patient's reported laceration. No radiopaque foreign body is appreciated. IMPRESSION: No radiopaque foreign body. Dictated by: Dallin Whitman M.D. on 07/13/2021 at 11:45 Approved by: Dallin Whitman M.D. on 07/13/2021 at 11:49
[2021-07-13] MEDS: HYDROCODONE/ACET 5/325 TABLET 2 TAB PO (11:50)
--- NOTE | 2021-07-13 13:59 | ED.UPPEXIN ---
HPI - Extremity Injury (Upper) <Annette Vides PA-C - Last Filed: 07/13/21 14:14> General Chief Complaint: Extremity Injury, Upper Stated Complaint: sliced finger with a saw Time Seen by Provider: 07/13/21 12:02 Source: patient Mode of arrival: Ambulatory History of Present Illness HPI narrative: 25-year-old male presents to the emergency department status post a finger injury sustained just prior to arrival. Patient accidentally injured his left middle finger tip when using a saw. Patient endorses some numbness of that finger. Denies weakness, tingling. Patient endorses being able to move the finger with full range of motion. Patient denies any other injuries. Patient's last tetanus was in 2019. Related Data Allergies Allergy/AdvReac Type Severity Reaction Status Date / Time cephalexin Allergy Intermediate Rash Verified 07/13/21 10:53 Review of Systems <Annette Vides PA-C - Last Filed: 07/13/21 14:14> Review of Systems ROS Unobtainable: All systems reviewed & are unremarkable except as noted in HPI and below Constitutional Constitutional: Denies chills, Denies fatigue, Denies fever(s), Denies frequent falls, Denies lethargy and Denies weakness Eyes Eyes: Denies change in vision, Denies eye discharge, Denies irritation and Denies loss of vision ENT Ears, Nose, Mouth, and Throat: Denies change in voice, Denies dizziness, Denies neck pain, Denies sore throat and Denies throat swelling Cardiovascular Cardiovascular: Denies chest pain, Denies irregular heart rhythm, Denies lightheadedness, Denies palpitations, Denies dyspnea, Denies dyspnea on exertion and Denies orthopnea Respiratory Respiratory: Denies cough, Denies dyspnea, Denies dyspnea on exertion and Denies wheezing Gastrointestinal Gastrointestinal: Denies abdominal pain, Denies change in bowel habits, Denies diarrhea, Denies nausea and Denies vomiting Genitourinary Genitourinary: Denies hematuria, Denies flank pain, Denies urinary incontinence and Denies urinary urgency Musculoskeletal Musculoskeletal: Denies back pain, Denies muscle weakness, Denies neck pain, Denies numbness and Denies tingling Integumentary/Breasts Skin/Breast: Denies pruritus, Denies erythema, Denies rash and Reports wounds Comments: Left hand middle finger laceration at the tip Neurologic Neurologic: Denies behavioral changes, Denies confusion, Denies dizziness, Denies frequent falls, Denies loss of vision, Denies numbness, Denies tingling and Denies weakness Psychiatric Psychiatric: Denies anxiety, Denies behavioral changes, Denies confusion, Denies depression, Denies homicidal ideation and Denies suicidal ideation Endocrine Endocrine: Denies fatigue, Denies flushing and Denies palpitations Hematologic/Lymphatic Hematologic/Lymphatic: Denies easy bruising Allergic/Immunologic Allergic/Immunologic: Denies urticaria, Denies throat swelling and Denies wheezing Patient History <Annette Vides PA-C - Last Filed: 07/13/21 14:14> Medical History Chronic back pain Otitis externa Surgical History Fracture of left upper limb Social History Smoking Status: Current every day smoker Smoking Status: Current every day smoker alcohol intake frequency: 3 or more drinks per day Substance Use Type: marijuana Exam <Annette Vides PA-C - Last Filed: 07/13/21 14:14> Initial Vital Signs Initial Vital Signs: Vital Signs Temperature 97.6 F 07/13/21 10:48 Pulse Rate 72 07/13/21 10:48 Respiratory Rate 14 07/13/21 10:48 Blood Pressure 121/46 L 07/13/21 10:48 Pulse Oximetry 95 07/13/21 10:48 Const General: cooperative, healthy appearing and comfortable Eyes General: appearance normal, both eyes and all related structures Neck Neck: normal visual inspection Resp Effort & Inspection: normal respiratory effort Cardio Rate: regular rate Skin Other: Avulsion injury noted to the tip of left middle finger. Not actively bleeding. No deeper structures visible on exam. Finger tip is intact, with only top half of the nail removed. Nail bed appears intact. Of diminished sensation in that finger. Full range of motion of all fingers. Cap refill less than 2 seconds. Neuro General: patient alert, patient awake and patient oriented x3 <Jammie López DO - Last Filed: 07/13/21 20:07> Initial Vital Signs Initial Vital Signs: Vital Signs Temperature 97.6 F 07/13/21 10:48 Pulse Rate 72 07/13/21 10:48 Respiratory Rate 14 07/13/21 10:48 Blood Pressure 121/46 L 07/13/21 10:48 Pulse Oximetry 95 07/13/21 10:48 Course <Annette Vides PA-C - Last Filed: 07/13/21 14:14> Orders Ordered: Discontinued Medications Hydrocodone Bitart/Acetaminophen (Hydrocodone/Acet 5/325 Tablet) 2 tab PO NOW ONE Stop: 07/13/21 11:45 Last Admin: 07/13/21 11:50 Dose: 2 tab Documented by: BTONER Lidocaine HCl (Lidocaine 1% 20 Ml) 20 ml INJ INTRA-OP ONE Stop: 07/13/21 12:49 Last Admin: 07/13/21 14:07 Dose: Not Given Documented by: SERGE Vital Signs Vital signs: Vital Signs - 8 hr 07/13/21 10:48 Temperature 97.6 F Pulse Rate 72 Respiratory Rate 14 Blood Pressure 121/46 L Pulse Oximetry 95 <Jammie López DO - Last Filed: 07/13/21 20:07> Orders Ordered: Discontinued Medications Hydrocodone Bitart/Acetaminophen (Hydrocodone/Acet 5/325 Tablet) 2 tab PO NOW ONE Stop: 07/13/21 11:45 Last Admin: 07/13/21 11:50 Dose: 2 tab Documented by: BTONER Lidocaine HCl (Lidocaine 1% 20 Ml) 20 ml INJ INTRA-OP ONE Stop: 07/13/21 12:49 Last Admin: 07/13/21 14:07 Dose: Not Given Documented by: SERGE Vital Signs Vital signs: Vital Signs - 8 hr 07/13/21 10:48 Temperature 97.6 F Pulse Rate 72 Respiratory Rate 14 Blood Pressure 121/46 L Pulse Oximetry 95 MDM - Extremity Injury (Upper) <Annette Vides PA-C - Last Filed: 07/13/21 14:14> Medical Records Attestation: I reviewed the patient's medical records. Imaging Data Extremity x-ray #1: Radiologist's Impression: PROCEDURE:? XR FINGER LT MIN 2V ? INDICATIONS:? cut middle digit with saw ? TECHNIQUE:? AP hand, 2 views of the 3rd finger(s) acquired.? ? COMPARISON:? [facility], ANT, FINGER LT, 03/05/2014, 18:20. ? FINDINGS:? ? Bones:? No fractures or dislocations.? No suspicious bony lesions.? ? Soft tissues:? Soft tissue irregularity, compatible with the patient's reported laceration.? No radiopaque foreign body is appreciated.? ? IMPRESSION:? No radiopaque foreign body. ? ? Dictated by: Dallin Whitman M.D. on 07/13/2021 at 11:45 ? ? Approved by: Dallin Whitman M.D. on 07/13/2021 at 11:49 ? MDM Narrative Medical decision making narrative: 25-year-old male presents to the emergency department status post a finger injury sustained just prior to arrival. Concern for ever english injury versus fracture/dislocation. Obtained x-rays with no acute findings. A digital block was applied to the finger to numb it. The wound was thoroughly irrigated and cleaned, no deeper structures were visualized. The wound was dressed with Gelfoam and a bulky dressing. Patient tolerated it well. Discharged patient home with ED return precautions and wound care instructions. Discharge Plan Departure Patient Disposition: Home Clinical Impression: Laceration Instructions: DI for Minor Laceration Activity Restrictions/Additional Instructions: You were evaluated in the ED today for a finger injury. Your x-ray did not show any fractures or dislocations. Your wound was cleaned, evaluated, dressed with a bulky dressing to promote healing. Please watch for signs of infection such as increased redness, warmth, heat, pus at the site of the wound. Please return to the ED if you notice any signs of infection. Please follow-up with a hand specialist as soon as possible. Referrals: Dorie Hernandez FNP-Dejah [Primary Care Provider] - <Jammie López DO - Last Filed: 07/13/21 20:07> Cosign ED Attending Jennifer Attestation: I was immediately available in the department for consultation. Documentation has been reviewed.
[2021-07-13] MEDS: LIDOCAINE 1% (PF) 2 ML (14:07)
== END 2021-07-13 14:09 | disposition home or self-care (01) ==
PROVIDERS: Emergency Provider Student in an Organized Health Care Education/Training Program; Family Provider Nurse Practitioner Family; PCP Nurse Practitioner Family
DX: S61.313A Laceration without foreign body of left middle finger with damage to nail, initial encounter (principal); W27.0XXA Contact with workbench tool, initial encounter
CPT/HCPCS: 64450; 73140; 99283